=== PATIENT | male | born 1950 | race Caucasian/White ===

== ENCOUNTER 2021-08-05 14:47 | Emergency (ER) | payer MEDICARE, MEDICAID ==
[2021-08-05] MEDS ORDERED: Morphine 4 MG/ML Syringe IVPUSH ONE (15:00)
[2021-08-05 15:40] LABS: CHLORIDE,CL 106 mmol/L (98-107); SODIUM,NA 141 mmol/L (136-145)
[2021-08-05] MEDS ORDERED: HYDROmorphone 1 MG/ML Syringe ONE (15:41)
--- NOTE | 2021-08-05 15:42 | CR ---
[id number] RAD/RAD Pelvis 1V W 2V Right Hip Exam: RAD Pelvis 1V W 2V Right Hip Clinical Data: TRAUMA COMPARISON: NO PREVIOUS SIMILAR EXAM IS AVAILABLE FINDINGS: There is a subtrochanteric fracture of the right hip with varus angulation There is avulsion of the lesser trochanter and extension to the greater trochanter. IMPRESSION: SUBTROCHANTERIC FRACTURE RIGHT HIP Fredis Noriega MD 08/05/21 8812 Thank you for allowing us to participate in the care of your patient.
[2021-08-05 16:34] LABS: ANION GAP 14.9 mmol/L (5-15)
--- NOTE | 2021-08-05 16:40 | EDM.PDOC ---
ED HPI GENERAL MEDICAL PROBLEM - General Chief Complaint: Lower Extremity Injury/Pain Time Seen by Provider: 08/05/21 14:52 Source of Information: Reports: Patient, EMS, EMS Notes Reviewed History Limitations: Reports: No Limitations - History of Present Illness INITIAL COMMENTS - FREE TEXT/NARRATIVE: Pt. presents to ER with complaints of R hip pain. Pt. states that he slipped on the ice, falling and injuring his R hip. Pt. states that he did not strike his head. Denied any chest pain, shortness of breath, or lightheadedness prior to the fall. Pt. states that he "doesn't doctor" and has not had preventative medicine for many years. He denies any chronic medical conditions, and is not currently on any medications. Pt. offers no other complaints, other than R hip pain. He was transported to ER via EMS. Onset: Today Location: Reports: Lower Extremity, Right Quality: Reports: Sharp, Throbbing - Related Data Allergies Allergy/AdvReac Type Severity Reaction Status Date / Time No Known Allergies Allergy Verified 08/05/21 14:53 Home Meds: Home Meds . [No Known Home Meds] 08/05/21 [History] ED ROS GENERAL - Review of Systems Review Of Systems: See Below Constitutional: Reports: No Symptoms HEENT: Reports: No Symptoms Respiratory: Reports: No Symptoms Cardiovascular: Reports: No Symptoms Endocrine: Reports: No Symptoms GI/Abdominal: Reports: No Symptoms : Reports: No Symptoms Musculoskeletal: Reports: Leg Pain, Joint Swelling Skin: Reports: No Symptoms Neurological: Reports: No Symptoms Psychiatric: Reports: No Symptoms Hematologic/Lymphatic: Reports: No Symptoms Immunologic: Reports: No Symptoms ED EXAM, GENERAL - Physical Exam Exam: See Below Exam Limited By: No Limitations General Appearance: Alert, WD/WN, No Apparent Distress Head: Atraumatic, Normocephalic Neck: Normal Inspection, Supple, Non-Tender, Full Range of Motion Respiratory/Chest: No Respiratory Distress, Lungs Clear, Normal Breath Sounds, No Accessory Muscle Use, Chest Non-Tender Cardiovascular: Normal Peripheral Pulses, Regular Rate, Rhythm, No Edema, No JVD Peripheral Pulses: 4+: Radial (L) GI/Abdominal: Soft, Non-Tender, No Distention, No Mass (Male) Exam: Deferred Rectal (Males) Exam: Deferred Extremities: Other (forshortened R lower extremity, external rotation) Neurological: Alert, Oriented, CN II-XII Intact, Normal Cognition Psychiatric: Normal Affect, Normal Mood Skin Exam: Warm, Dry, Intact, Normal Color, No Rash Lymphatic: No Adenopathy Course - Orders/Labs/Meds Labs: Laboratory Tests 08/05/21 08/05/21 08/05/21 Range/Units 15:00 15:14 15:14 WBC 6.9 (4.0-10.0) x10^3/uL RBC 2.27 L (4.5-6.0) x10^6/uL Hgb 11.5 L (14.0-18.0) g/dL Hct 22.4 L (40.0-52.0) % MCV 98.7 H (78.0-93.0) fL MCH 50.7 H (26.0-32.0) pg MCHC 51.3 H (32.0-36.0) g/dL RDW Coeff of Víctor 21.1 H (10.0-15.0) % Plt Count 131 (130-400) x10^3/uL Add Manual Diff Yes Neutrophils % (Manual) 81 H (50-80) % Band Neutrophils % 5 (0-6) % Lymphocytes % (Manual) 7 L (25-50) % Monocytes % (Manual) 6 (2-11) % Basophils % (Manual) 1 (0-1) % Absolute Neutrophils 5.9 (1.8-7.7) x10^3/uL Lymphocytes # (Manual) 0.5 L (1.0-4.8) x10^3/uL Monocytes # (Manual) 0.4 (0.0-0.8) x10^3/uL Basophils # (Manual) 0.1 (0.0-0.2) x10^3/uL Platelet Estimate Adequate RBC Morph Comment See note PT 11.0 (9.9-12.5) SEC INR 1.0 L (2.0-3.5) Sodium (136-145) mmol/L Potassium (3.5-5.1) mmol/L Chloride (98-107) mmol/L Carbon Dioxide (21-32) mmol/L Anion Gap (5-15) mmol/L BUN (7-18) mg/dL Creatinine (0.70-1.30) mg/dL Est Cr Clr Drug Dosing Estimated GFR (MDRD) Glucose (70-99) mg/dL Calcium (8.5-10.1) mg/dL Corrected Calcium (8.5-10.1) mg/dL Total Bilirubin (0.2-1.0) mg/dL AST (15-37) U/L ALT (16-63) U/L Alkaline Phosphatase (46-116) U/L Total Protein (6.4-8.2) g/dL Albumin (3.4-5.0) g/dL Globulin Albumin/Globulin Ratio SARS CoV-2 RNA Rapid MEDARDO Negative (NEGATIVE) 08/05/21 Range/Units 15:14 WBC (4.0-10.0) x10^3/uL RBC (4.5-6.0) x10^6/uL Hgb (14.0-18.0) g/dL Hct (40.0-52.0) % MCV (78.0-93.0) fL MCH (26.0-32.0) pg MCHC (32.0-36.0) g/dL RDW Coeff of Víctor (10.0-15.0) % Plt Count (130-400) x10^3/uL Add Manual Diff Neutrophils % (Manual) (50-80) % Band Neutrophils % (0-6) % Lymphocytes % (Manual) (25-50) % Monocytes % (Manual) (2-11) % Basophils % (Manual) (0-1) % Absolute Neutrophils (1.8-7.7) x10^3/uL Lymphocytes # (Manual) (1.0-4.8) x10^3/uL Monocytes # (Manual) (0.0-0.8) x10^3/uL Basophils # (Manual) (0.0-0.2) x10^3/uL Platelet Estimate RBC Morph Comment PT (9.9-12.5) SEC INR (2.0-3.5) Sodium 141 (136-145) mmol/L Potassium 3.9 (3.5-5.1) mmol/L Chloride 106 (98-107) mmol/L Carbon Dioxide 24 (21-32) mmol/L Anion Gap 14.9 (5-15) mmol/L BUN 27 H (7-18) mg/dL Creatinine 1.3 (0.70-1.30) mg/dL Est Cr Clr Drug Dosing TNP Estimated GFR (MDRD) 55 Glucose 93 (70-99) mg/dL Calcium 8.4 L (8.5-10.1) mg/dL Corrected Calcium 8.8 (8.5-10.1) mg/dL Total Bilirubin 0.5 (0.2-1.0) mg/dL AST 16 (15-37) U/L ALT 17 (16-63) U/L Alkaline Phosphatase 96 (46-116) U/L Total Protein 7.8 (6.4-8.2) g/dL Albumin 3.5 (3.4-5.0) g/dL Globulin 4.3 Albumin/Globulin Ratio 0.81 SARS CoV-2 RNA Rapid MEDARDO (NEGATIVE) Meds: Medications Discontinued Medications Generic Name Dose Route Start Last Admin Trade Name Freq PRN Reason Stop Dose Admin Hydromorphone HCl Confirm 08/05/21 15:41 Hydromorphone 1 Mg/Ml Syringe Administered 08/05/21 15:42 Dose 1 mg .ROUTE .STK-MED ONE Morphine Sulfate 4 mg 08/05/21 15:00 08/05/21 15:05 Morphine 4 Mg/Ml Syringe IVPUSH 08/05/21 15:01 4 mg ONETIME ONE Administration - Radiology Interpretation Free Text/Narrative:: subtrochanteric hip fracture Departure - Departure Time of Disposition: 16:51 Disposition: DC/Tfer to Acute Hospital 02 Clinical Impression: Subtrochanteric fracture of hip - Discharge Information Forms: ED Department Discharge - Problem List Review Problem List Initiated/Reviewed/Updated: Yes - Assessment/Plan Plan: Pt. will be transferred to [facility] in [place]. He will be transported via [facility] ground [facility]. He can be transported via [facility] ground ambulance.
== END 2021-08-05 17:45 | disposition short-term general hospital (02) ==
LOC: VM.ED 14:47
DX: S72.21XA Displaced subtrochanteric fracture of right femur, initial encounter for closed fracture (principal); Z20.822 Contact with and (suspected) exposure to COVID-19; W00.0XXA Fall on same level due to ice and snow, initial encounter
CPT/HCPCS: 36415; 73502; 80053; 85025; 85610; 85730; 96374; 99285; J1170; J2270; U0002; 99283

== ENCOUNTER 2021-08-11 15:08 | Inpatient (IN) | payer MEDICARE, MEDICAID ==
[2021-08-18] MEDS ORDERED: Polyethylene Glycol 3350 Powder 17 GM Packet PO PRN (17:00)
[2021-08-18] MEDS ORDERED: Bisacodyl 10 MG Supp RECTAL PRN (17:00)
[2021-08-18] MEDS ORDERED: Calcium Carbonate 750 MG Tab.Chew PO PRN (17:26)
[2021-08-18] MEDS: Vitamin B Complex Tab PO SCH (19:06)
[2021-08-18] MEDS: Pantoprazole 40 MG Tab.CR PO SCH (19:06)
--- NOTE | 2021-08-18 20:36 | HP ---
CHIEF COMPLAINT: 1. Right hip fracture. 2. Fall. HISTORY OF PRESENT ILLNESS: A 70-year-old gentleman with no significant past medical history who has not seen a provider for many years, presented to [facility] Emergency Room with a fall with a right hip fracture. The patient was transferred to [facility] in [place] for further evaluation and possible surgery. On admission to the hospital, the patient had some acute kidney injury with creatinine of 1.3 and microcytic anemia. Postoperatively, the patient developed anemia with less than 7 and required transfusion of [address] scan showed small hematoma, which was followed by another CT scan with improvement and hence active bleeding was unlikely. The patient's surgery was uneventful. The patient remained stable through his hospital stay with some iron supplements and vitamins. The wound does continue to drain some serous fluid and sometimes blood-tinged fluid. The patient's discharge from was delayed due to his low hemoglobin. The patient did test positive for COVID-19 on 08/15/2021. The patient was not started on remdesivir or Decadron as he did not require any oxygen. It is felt that the anemia is probably due to postoperative blood loss. Hematology was consulted and recommended supplement iron either oral or IV. GI was also consulted, which recommended an EGD and colonoscopy once the patient is stable and as an outpatient. PAST MEDICAL HISTORY: Denies. PAST SURGICAL HISTORY: Denies. FAMILY HISTORY: Hypertension with the patient's mother. SOCIAL HISTORY: The patient quit smoking 2 weeks ago. He does not use any illegal drugs. The patient drinks alcohol on occasion. The patient is currently not . The patient does not have any children. ALLERGIES: No known drug allergies. MEDICATIONS: 1. Acetaminophen 650 mg 1 tablet p.o. 4 times daily. 2. Ascorbic acid 1000 mg 1 tablet p.o. daily. 3. Dulcolax 10 mg rectal daily as needed. 4. Calcium carbonate 750 mg p.o. every 4 hours as needed. 5. Calcium carbonate/vitamin D 1 tablet p.o. daily. 6. Vitamin D3 20 mcg p.o. daily. 7. Senna-S 2 tablets p.o. twice daily. 8. Lovenox 40 mg subcutaneous every 24 hours. 9. Ferrous sulfate 325 mg p.o. daily. 10.Multivitamin 1 tablet p.o. daily. 11.Zofran 4 mg p.o. every 6 hours as needed. 12.Oxycodone 5 mg p.o. every 4 hours as needed. 13.Protonix 40 mg p.o. daily. 14.MiraLAX 17 g p.o. daily as needed. 15.Vitamin B complex 1 tablet p.o. daily. 16.Zinc sulfate 220 mg p.o. daily. LABORATORY WORK: None. IMAGING STUDIES: None. REVIEW OF SYSTEMS: Constitutional: Negative. Skin: Negative. Respiratory: Negative. Cardiovascular: Negative. Abdomen: Negative. Extremities: The patient is concerned about significant swelling of the right thigh. Neurological: Negative. Incision negative. PHYSICAL EXAMINATION: Vital Signs: Height 6 feet 1 inch, weight 257 pounds. Temperature 98, pulse 67, blood pressure 136/57, respiratory rate 16, oxygen saturation 98% on room air. Skin: Warm and dry. [place] are intact along the lateral aspect of the upper right thigh; no drainage; dressing is dry; area is tender to palpation. Respiratory: Lungs are decreased, but clear throughout. Cardiovascular: Regular rate and rhythm, no murmur. Abdomen: Soft, nontender. Bowel sounds are hypoactive x4. Extremities: No edema. Neurological: Patient is alert. Patient is oriented to person, place, and time. No focal neurological deficits. ASSESSMENT: 1. Right hip fracture, as a result of a mechanical fall. 2. Status post intramedullary nailing of right subtrochanteric fracture. 3. Right knee swelling. 4. Macrocytic anemia. 5. Tobacco use disorder. PLAN: A 70-year-old male patient will be admitted to the swing bed unit for rehab status post right hip fracture surgery. We will continue the patient on his current medications without any changes. We will consult PT and OT. The patient wishes to be a full code. The patient does wish to transfer to higher level of care should the need arise. Recheck laboratory work tomorrow. This patient was seen and examined by me as an [facility] provider. TB: 08/18/2021 19:54:50 MODL: 08/18/2021 20:32:12 /[id number]
[2021-08-18] MEDS: Acetaminophen 325 MG Tab PO SCH (20:50)
[2021-08-19 07:39] LABS: CHLORIDE,CL 107 mmol/L (98-107); SODIUM,NA 141 mmol/L (136-145)
[2021-08-19 07:43] LABS: ANION GAP 12.3 mmol/L (5-15)
[2021-08-19] MEDS ORDERED: Enoxaparin 40 MG/0.4 ML Syringe SUBCUT SCH (08:00)
[2021-08-19] MEDS ORDERED: Non-Formulary Medication 1 Each (Ascorbic Acid [Vitamin C] 1,000 MG Tablet) PO SCH (08:00)
[2021-08-19] MEDS ORDERED: Non-Formulary Medication 1 Each (Zinc Sulfate [Zinc] 50 MG Tablet) PO SCH (08:00)
[2021-08-19] MEDS ORDERED: Non-Formulary Medication 1 Each (Calcium Carbonate [Calcium] 500 MG Tablet) PO SCH (08:00)
[2021-08-19] MEDS ORDERED: Non-Formulary Medication 1 Each (Multivitamin [Multivitamin] 1 EACH Tablet) PO SCH (08:00)
[2021-08-19] MEDS ORDERED: Non-Formulary Medication 1 Each (Cholecalciferol (Vitamin D3) [Vitamin D3] 400 UNIT Capsul PO SCH (08:00)
[2021-08-19] MEDS: Cholecalciferol (Vitamin D3) 10 MCG Tab PO SCH (09:03)
[2021-08-19] MEDS: Ascorbic Acid 500 MG Tab PO SCH (09:03)
[2021-08-19] MEDS: Ferrous Sulfate 325 MG Tab PO SCH (09:03)
[2021-08-19] MEDS: Calcium Carbonate/Vitamin D3 1250 MG-5 MCG Tab PO SCH (09:03)
[2021-08-19] MEDS: Multivitamins with Iron/Calcium/Folic Acid/Minerals Tab PO SCH (09:03)
[2021-08-19] MEDS: Acetaminophen 325 MG Tab PO SCH ×4 (09:04→20:12)
[2021-08-19] MEDS: Enoxaparin 40 MG/0.4 ML Syringe SUBCUT SCH (13:52)
[2021-08-19] MEDS: Zinc Sulfate 220 MG Cap PO SCH (16:37)
[2021-08-19] MEDS: Pantoprazole 40 MG Tab.CR PO SCH (16:38)
[2021-08-19] MEDS: Vitamin B Complex Tab PO SCH (18:04)
[2021-08-20] MEDS: Cholecalciferol (Vitamin D3) 10 MCG Tab PO SCH (10:21)
[2021-08-20] MEDS: Calcium Carbonate/Vitamin D3 1250 MG-5 MCG Tab PO SCH (10:21)
[2021-08-20] MEDS: Ferrous Sulfate 325 MG Tab PO SCH (10:21)
[2021-08-20] MEDS: Multivitamins with Iron/Calcium/Folic Acid/Minerals Tab PO SCH (10:22)
[2021-08-20] MEDS: Acetaminophen 325 MG Tab PO SCH ×4 (10:22→19:47)
[2021-08-20] MEDS: Ascorbic Acid 500 MG Tab PO SCH (10:22)
[2021-08-20] MEDS: Enoxaparin 40 MG/0.4 ML Syringe SUBCUT SCH (13:17)
[2021-08-20] MEDS: Zinc Sulfate 220 MG Cap PO SCH (13:17)
[2021-08-20] MEDS: Vitamin B Complex Tab PO SCH (17:47)
[2021-08-20] MEDS: Pantoprazole 40 MG Tab.CR PO SCH (17:48)
[2021-08-21] MEDS: Acetaminophen 325 MG Tab PO SCH ×4 (08:15→20:20)
[2021-08-21] MEDS: Ferrous Sulfate 325 MG Tab PO SCH (08:16)
[2021-08-21] MEDS: Cholecalciferol (Vitamin D3) 10 MCG Tab PO SCH (08:16)
[2021-08-21] MEDS: Ascorbic Acid 500 MG Tab PO SCH (08:17)
[2021-08-21] MEDS: Multivitamins with Iron/Calcium/Folic Acid/Minerals Tab PO SCH (08:18)
[2021-08-21] MEDS: Calcium Carbonate/Vitamin D3 1250 MG-5 MCG Tab PO SCH (08:18)
[2021-08-21] MEDS: Enoxaparin 40 MG/0.4 ML Syringe SUBCUT SCH (12:24)
[2021-08-21] MEDS: Zinc Sulfate 220 MG Cap PO SCH (12:25)
[2021-08-21] MEDS: oxyCODONE 5 MG Tab PO PRN (12:27)
[2021-08-21] MEDS: Pantoprazole 40 MG Tab.CR PO SCH (16:44)
[2021-08-21] MEDS: Vitamin B Complex Tab PO SCH ×2 (16:45→18:22)
[2021-08-22] MEDS: Acetaminophen 325 MG Tab PO SCH ×4 (07:42→20:20)
[2021-08-22] MEDS: Ascorbic Acid 500 MG Tab PO SCH (07:43)
[2021-08-22] MEDS: Zinc Sulfate 220 MG Cap PO SCH (07:43)
[2021-08-22] MEDS: Ondansetron 4 MG Tab.DIS PO PRN (07:43)
[2021-08-22] MEDS: Ferrous Sulfate 325 MG Tab PO SCH (07:43)
[2021-08-22] MEDS: Calcium Carbonate/Vitamin D3 1250 MG-5 MCG Tab PO SCH (07:43)
[2021-08-22] MEDS: Cholecalciferol (Vitamin D3) 10 MCG Tab PO SCH (07:43)
[2021-08-22] MEDS: Multivitamins with Iron/Calcium/Folic Acid/Minerals Tab PO SCH (07:44)
[2021-08-22] MEDS ORDERED: Sodium Phosphate,Monobasic/Sodium Phosphate,Dibasic Enema 133 ML Bottle RECTAL PRN (08:02)
[2021-08-22] MEDS: Enoxaparin 40 MG/0.4 ML Syringe SUBCUT SCH (11:41)
[2021-08-22] MEDS: Pantoprazole 40 MG Tab.CR PO SCH (16:26)
[2021-08-22] MEDS: Vitamin B Complex Tab PO SCH ×2 (16:27→17:14)
[2021-08-23] MEDS: Zinc Sulfate 220 MG Cap PO SCH (09:30)
[2021-08-23] MEDS: Ascorbic Acid 500 MG Tab PO SCH (09:30)
[2021-08-23] MEDS: Ferrous Sulfate 325 MG Tab PO SCH (09:31)
[2021-08-23] MEDS: Calcium Carbonate/Vitamin D3 1250 MG-5 MCG Tab PO SCH (09:31)
[2021-08-23] MEDS: Acetaminophen 325 MG Tab PO SCH ×4 (09:31→19:55)
[2021-08-23] MEDS: Multivitamins with Iron/Calcium/Folic Acid/Minerals Tab PO SCH (09:31)
[2021-08-23] MEDS: Cholecalciferol (Vitamin D3) 10 MCG Tab PO SCH (09:32)
[2021-08-23] MEDS: Enoxaparin 40 MG/0.4 ML Syringe SUBCUT SCH (12:46)
--- NOTE | 2021-08-23 14:31 | CR ---
[id number] RAD/RAD Chest PA or AP 1V EXAM: FRONTAL CHEST INDICATION: COVID. COMPARISON: None. DISCUSSION: Mild bibasilar infiltrates. Normal heart size. No effusions. IMPRESSION: 1. Mild bibasilar infiltrates, right greater than left. Emeka Silverio MD 08/23/21 [id number] Thank you for allowing us to participate in the care of your patient.
[2021-08-23] MEDS ORDERED: VANCOmycin 2 GM/400 ML 400 ML IV ONE (17:00)
--- NOTE | 2021-08-23 17:22 | PCM.SN.2 ---
- Free Text/Narrative Note: 13:15 Notified by NATAN Lorenz of change in patient status. Low grade temp of 99.9, patient developed a cough, sats 92% on RA. Remdesivir not indicated as patient is not requiring oxygen. Will obtain labs and CXR. 15:30 Labs and CXR results reviewed. Xray shows bibasilar infiltrates. Symptoms likely bacterial, therefore will have pharmacy start patient on abx therapy. Will start Decadron. Recheck labs tomorrow morning. Consult respiratory therapy. Nursing for C/DB, IS instruction. Will continue to monitor. Anne Marie Aguayo NP 08/23/2021
[2021-08-23] MEDS ORDERED: Vancomycin 2 GM in Sodium Chloride 0.9% 500 ML IV ONE (17:45)
[2021-08-23] MEDS: Cefepime 1 GM Vial IVPUSH SCH (17:58)
[2021-08-23] MEDS: dexAMETHasone 2 MG, dexAMETHasone 4 MG PO SCH ×2 (17:58)
[2021-08-23] MEDS: Vitamin B Complex Tab PO SCH (17:58)
[2021-08-23] MEDS: Pantoprazole 40 MG Tab.CR PO SCH (17:58)
[2021-08-24] MEDS: Cefepime 1 GM Vial IVPUSH SCH ×3 (01:32→17:28)
[2021-08-24] MEDS: VANCOMYCIN IV SCH ×2 (05:34→17:48)
[2021-08-24] MEDS: Cholecalciferol (Vitamin D3) 10 MCG Tab PO SCH (10:12)
[2021-08-24] MEDS: Multivitamins with Iron/Calcium/Folic Acid/Minerals Tab PO SCH (10:12)
[2021-08-24] MEDS: Ascorbic Acid 500 MG Tab PO SCH (10:12)
[2021-08-24] MEDS: dexAMETHasone 2 MG, dexAMETHasone 4 MG PO SCH ×2 (10:13)
[2021-08-24] MEDS: Ferrous Sulfate 325 MG Tab PO SCH (10:14)
[2021-08-24] MEDS: Zinc Sulfate 220 MG Cap PO SCH (10:14)
[2021-08-24] MEDS: Acetaminophen 325 MG Tab PO SCH ×4 (10:14→19:40)
[2021-08-24] MEDS: Calcium Carbonate/Vitamin D3 1250 MG-5 MCG Tab PO SCH (10:14)
[2021-08-24] MEDS: Enoxaparin 40 MG/0.4 ML Syringe SUBCUT SCH (13:31)
[2021-08-24] MEDS: Pantoprazole 40 MG Tab.CR PO SCH (17:26)
[2021-08-24] MEDS: Vitamin B Complex Tab PO SCH (17:30)
[2021-08-25] MEDS: Cefepime 1 GM Vial IVPUSH SCH ×3 (01:20→18:21)
[2021-08-25] MEDS: VANCOMYCIN IV SCH ×2 (06:46→07:21)
[2021-08-25] MEDS: Zinc Sulfate 220 MG Cap PO SCH (10:06)
[2021-08-25] MEDS: Cholecalciferol (Vitamin D3) 10 MCG Tab PO SCH (10:07)
[2021-08-25] MEDS: Calcium Carbonate/Vitamin D3 1250 MG-5 MCG Tab PO SCH (10:07)
[2021-08-25] MEDS: Multivitamins with Iron/Calcium/Folic Acid/Minerals Tab PO SCH (10:07)
[2021-08-25] MEDS: Ascorbic Acid 500 MG Tab PO SCH (10:07)
[2021-08-25] MEDS: Ferrous Sulfate 325 MG Tab PO SCH (10:08)
[2021-08-25] MEDS: dexAMETHasone 2 MG, dexAMETHasone 4 MG PO SCH ×2 (10:09)
[2021-08-25] MEDS: Acetaminophen 325 MG Tab PO SCH ×4 (10:09→19:50)
[2021-08-25] MEDS: VANCOmycin 1.25 GM/250 ML 250 ML IV SCH (13:14)
[2021-08-25] MEDS: Enoxaparin 40 MG/0.4 ML Syringe SUBCUT SCH (13:24)
[2021-08-25] MEDS: Vitamin B Complex Tab PO SCH (18:21)
[2021-08-25] MEDS: Pantoprazole 40 MG Tab.CR PO SCH (18:21)
[2021-08-25] MEDS: Sodium Chloride 0.9% 10 ML Syringe IV PRN (19:52)
[2021-08-26] MEDS: Cefepime 1 GM Vial IVPUSH SCH ×3 (01:03→17:37)
[2021-08-26] MEDS: VANCOmycin 1.25 GM/250 ML 250 ML IV SCH ×2 (01:03→12:47)
[2021-08-26] MEDS: dexAMETHasone 2 MG, dexAMETHasone 4 MG PO SCH ×2 (11:47)
[2021-08-26] MEDS: Calcium Carbonate/Vitamin D3 1250 MG-5 MCG Tab PO SCH (11:47)
[2021-08-26] MEDS: Multivitamins with Iron/Calcium/Folic Acid/Minerals Tab PO SCH (11:47)
[2021-08-26] MEDS: Ferrous Sulfate 325 MG Tab PO SCH (11:47)
[2021-08-26] MEDS: Cholecalciferol (Vitamin D3) 10 MCG Tab PO SCH (11:48)
[2021-08-26] MEDS: Zinc Sulfate 220 MG Cap PO SCH (11:48)
[2021-08-26] MEDS: Acetaminophen 325 MG Tab PO SCH ×4 (11:48→19:42)
[2021-08-26] MEDS: Ascorbic Acid 500 MG Tab PO SCH (11:48)
[2021-08-26] MEDS: Enoxaparin 40 MG/0.4 ML Syringe SUBCUT SCH (12:47)
[2021-08-26 12:48] LABS: CHLORIDE,CL 108 mmol/L (98-107); SODIUM,NA 141 mmol/L (136-145)
[2021-08-26 13:05] LABS: ANION GAP 15.1 mmol/L (5-15)
[2021-08-26] MEDS: Vitamin B Complex Tab PO SCH (17:37)
[2021-08-26] MEDS: Pantoprazole 40 MG Tab.CR PO SCH (17:37)
[2021-08-27] MEDS: Cefepime 1 GM Vial IVPUSH SCH ×3 (00:59→17:46)
[2021-08-27] MEDS: Sodium Chloride 0.9% 10 ML Syringe IV PRN (01:00)
[2021-08-27] MEDS: VANCOmycin 1.25 GM/250 ML 250 ML IV SCH ×2 (01:00→13:56)
[2021-08-27] MEDS: Multivitamins with Iron/Calcium/Folic Acid/Minerals Tab PO SCH (09:58)
[2021-08-27] MEDS: Calcium Carbonate/Vitamin D3 1250 MG-5 MCG Tab PO SCH (09:58)
[2021-08-27] MEDS: Ascorbic Acid 500 MG Tab PO SCH (09:58)
[2021-08-27] MEDS: Cholecalciferol (Vitamin D3) 10 MCG Tab PO SCH (09:58)
[2021-08-27] MEDS: Acetaminophen 325 MG Tab PO SCH ×4 (09:59→19:44)
[2021-08-27] MEDS: Ferrous Sulfate 325 MG Tab PO SCH (09:59)
[2021-08-27] MEDS: Zinc Sulfate 220 MG Cap PO SCH (09:59)
[2021-08-27] MEDS: dexAMETHasone 2 MG, dexAMETHasone 4 MG PO SCH ×2 (09:59)
[2021-08-27] MEDS: Enoxaparin 40 MG/0.4 ML Syringe SUBCUT SCH (12:31)
[2021-08-27] MEDS: Vitamin B Complex Tab PO SCH (17:46)
[2021-08-27] MEDS: Pantoprazole 40 MG Tab.CR PO SCH (17:46)
[2021-08-28] MEDS: Cefepime 1 GM Vial IVPUSH SCH ×3 (01:36→17:40)
[2021-08-28] MEDS: Sodium Chloride 0.9% 10 ML Syringe IV PRN ×2 (01:36→19:30)
[2021-08-28] MEDS: dexAMETHasone 2 MG, dexAMETHasone 4 MG PO SCH ×2 (09:03)
[2021-08-28] MEDS: Ferrous Sulfate 325 MG Tab PO SCH (09:03)
[2021-08-28] MEDS: Ascorbic Acid 500 MG Tab PO SCH (09:04)
[2021-08-28] MEDS: Zinc Sulfate 220 MG Cap PO SCH (09:04)
[2021-08-28] MEDS: Cholecalciferol (Vitamin D3) 10 MCG Tab PO SCH (09:04)
[2021-08-28] MEDS: Multivitamins with Iron/Calcium/Folic Acid/Minerals Tab PO SCH (09:04)
[2021-08-28] MEDS: Calcium Carbonate/Vitamin D3 1250 MG-5 MCG Tab PO SCH (09:05)
[2021-08-28] MEDS: Acetaminophen 325 MG Tab PO SCH ×4 (09:05→19:27)
[2021-08-28] MEDS: Enoxaparin 40 MG/0.4 ML Syringe SUBCUT SCH (11:40)
[2021-08-28] MEDS: VANCOmycin 1.25 GM/250 ML 250 ML IV SCH (15:04)
[2021-08-28] MEDS: Pantoprazole 40 MG Tab.CR PO SCH (17:36)
[2021-08-28] MEDS: Vitamin B Complex Tab PO SCH (17:36)
[2021-08-29] MEDS: VANCOmycin 1.25 GM/250 ML 250 ML IV SCH ×2 (00:19→11:35)
[2021-08-29] MEDS: Cefepime 1 GM Vial IVPUSH SCH ×3 (02:25→17:37)
[2021-08-29] MEDS: Sodium Chloride 0.9% 10 ML Syringe IV PRN ×3 (02:29→17:37)
[2021-08-29] MEDS: Zinc Sulfate 220 MG Cap PO SCH (07:56)
[2021-08-29] MEDS: Ferrous Sulfate 325 MG Tab PO SCH (07:57)
[2021-08-29] MEDS: Cholecalciferol (Vitamin D3) 10 MCG Tab PO SCH (07:57)
[2021-08-29] MEDS: Ascorbic Acid 500 MG Tab PO SCH (07:57)
[2021-08-29] MEDS: Acetaminophen 325 MG Tab PO SCH ×4 (07:57→20:20)
[2021-08-29] MEDS: Multivitamins with Iron/Calcium/Folic Acid/Minerals Tab PO SCH (07:57)
[2021-08-29] MEDS: Calcium Carbonate/Vitamin D3 1250 MG-5 MCG Tab PO SCH (07:58)
[2021-08-29] MEDS: Enoxaparin 40 MG/0.4 ML Syringe SUBCUT SCH (11:43)
[2021-08-29] MEDS: oxyCODONE 5 MG Tab PO PRN (12:22)
[2021-08-29] MEDS: Pantoprazole 40 MG Tab.CR PO SCH (16:45)
[2021-08-29] MEDS: Vitamin B Complex Tab PO SCH (17:36)
[2021-08-30] MEDS ORDERED: Cyanocobalamin (Vitamin B12) 1,000 MCG/ML SDV IM ONE (07:23)
[2021-08-30] MEDS: Cholecalciferol (Vitamin D3) 10 MCG Tab PO SCH (08:44)
[2021-08-30] MEDS: Calcium Carbonate/Vitamin D3 1250 MG-5 MCG Tab PO SCH (08:44)
[2021-08-30] MEDS: Acetaminophen 325 MG Tab PO SCH ×4 (08:44→20:37)
[2021-08-30] MEDS: Zinc Sulfate 220 MG Cap PO SCH (08:45)
[2021-08-30] MEDS: Ascorbic Acid 500 MG Tab PO SCH (08:45)
[2021-08-30] MEDS: Ferrous Sulfate 325 MG Tab PO SCH (08:45)
[2021-08-30] MEDS: Multivitamins with Iron/Calcium/Folic Acid/Minerals Tab PO SCH (08:45)
[2021-08-30] MEDS: Enoxaparin 40 MG/0.4 ML Syringe SUBCUT SCH (12:12)
[2021-08-30] MEDS: Pantoprazole 40 MG Tab.CR PO SCH (16:13)
[2021-08-30] MEDS: Vitamin B Complex Tab PO SCH (17:19)
[2021-08-31 07:35] LABS: CHLORIDE,CL 111 mmol/L (98-107); SODIUM,NA 142 mmol/L (136-145)
[2021-08-31 07:36] LABS: ANION GAP 11.7 mmol/L (5-15)
[2021-08-31] MEDS: Ascorbic Acid 500 MG Tab PO SCH (10:58)
[2021-08-31] MEDS: Multivitamins with Iron/Calcium/Folic Acid/Minerals Tab PO SCH (10:58)
[2021-08-31] MEDS: Calcium Carbonate/Vitamin D3 1250 MG-5 MCG Tab PO SCH (10:58)
[2021-08-31] MEDS: Cholecalciferol (Vitamin D3) 10 MCG Tab PO SCH (10:58)
[2021-08-31] MEDS: Ferrous Sulfate 325 MG Tab PO SCH (10:58)
[2021-08-31] MEDS: Zinc Sulfate 220 MG Cap PO SCH (10:59)
[2021-08-31] MEDS: Acetaminophen 325 MG Tab PO SCH ×4 (10:59→20:45)
[2021-08-31] MEDS: Enoxaparin 40 MG/0.4 ML Syringe SUBCUT SCH (14:11)
[2021-08-31] MEDS: Vitamin B Complex Tab PO SCH (18:21)
[2021-08-31] MEDS: Pantoprazole 40 MG Tab.CR PO SCH (18:21)
[2021-09-01] MEDS: Zinc Sulfate 220 MG Cap PO SCH (07:58)
[2021-09-01] MEDS: Cholecalciferol (Vitamin D3) 10 MCG Tab PO SCH (07:58)
[2021-09-01] MEDS: Calcium Carbonate/Vitamin D3 1250 MG-5 MCG Tab PO SCH (07:58)
[2021-09-01] MEDS: Ferrous Sulfate 325 MG Tab PO SCH (07:58)
[2021-09-01] MEDS: Ascorbic Acid 500 MG Tab PO SCH (07:58)
[2021-09-01] MEDS: Acetaminophen 325 MG Tab PO SCH ×4 (07:58→20:34)
[2021-09-01] MEDS: Multivitamins with Iron/Calcium/Folic Acid/Minerals Tab PO SCH (07:59)
[2021-09-01] MEDS: oxyCODONE 5 MG Tab PO PRN ×2 (09:16→13:57)
[2021-09-01] MEDS: Enoxaparin 40 MG/0.4 ML Syringe SUBCUT SCH (11:04)
[2021-09-01] MEDS: Ondansetron 4 MG Tab.DIS PO PRN (13:57)
[2021-09-01] MEDS: Vitamin B Complex Tab PO SCH (17:41)
[2021-09-01] MEDS: Pantoprazole 40 MG Tab.CR PO SCH (17:41)
[2021-09-02] MEDS: Ascorbic Acid 500 MG Tab PO SCH (07:41)
[2021-09-02] MEDS: Calcium Carbonate/Vitamin D3 1250 MG-5 MCG Tab PO SCH (07:41)
[2021-09-02] MEDS: Acetaminophen 325 MG Tab PO SCH ×4 (07:41→20:29)
[2021-09-02] MEDS: Ondansetron 4 MG Tab.DIS PO PRN (07:42)
[2021-09-02] MEDS: Zinc Sulfate 220 MG Cap PO SCH (07:42)
[2021-09-02] MEDS: Ferrous Sulfate 325 MG Tab PO SCH (07:42)
[2021-09-02] MEDS: Multivitamins with Iron/Calcium/Folic Acid/Minerals Tab PO SCH (07:42)
[2021-09-02] MEDS: oxyCODONE 5 MG Tab PO PRN (07:42)
[2021-09-02] MEDS: Cholecalciferol (Vitamin D3) 10 MCG Tab PO SCH (07:42)
[2021-09-02] MEDS: Enoxaparin 40 MG/0.4 ML Syringe SUBCUT SCH (11:22)
[2021-09-02] MEDS: Pantoprazole 40 MG Tab.CR PO SCH (17:25)
[2021-09-02] MEDS: Vitamin B Complex Tab PO SCH (17:25)
[2021-09-03] MEDS: Ascorbic Acid 500 MG Tab PO SCH (08:56)
[2021-09-03] MEDS: Zinc Sulfate 220 MG Cap PO SCH (08:56)
[2021-09-03] MEDS: Cholecalciferol (Vitamin D3) 10 MCG Tab PO SCH (08:56)
[2021-09-03] MEDS: Calcium Carbonate/Vitamin D3 1250 MG-5 MCG Tab PO SCH (08:56)
[2021-09-03] MEDS: Ferrous Sulfate 325 MG Tab PO SCH (08:56)
[2021-09-03] MEDS: Acetaminophen 325 MG Tab PO SCH ×4 (08:57→20:04)
[2021-09-03] MEDS: Multivitamins with Iron/Calcium/Folic Acid/Minerals Tab PO SCH (08:57)
[2021-09-03] MEDS ORDERED: Magnesium Hydroxide 400 MG/5 ML Susp 30 ML Cup PO PRN (11:24)
[2021-09-03] MEDS ORDERED: Bisacodyl 10 MG Supp RECTAL PRN (11:26)
[2021-09-03] MEDS: Enoxaparin 40 MG/0.4 ML Syringe SUBCUT SCH (14:05)
[2021-09-03] MEDS: Ondansetron 4 MG Tab.DIS PO PRN (14:06)
[2021-09-03] MEDS: oxyCODONE 5 MG Tab PO PRN (14:06)
[2021-09-03] MEDS: Pantoprazole 40 MG Tab.CR PO SCH (17:23)
[2021-09-03] MEDS: Vitamin B Complex Tab PO SCH (17:23)
[2021-09-04] MEDS: Ferrous Sulfate 325 MG Tab PO SCH (09:57)
[2021-09-04] MEDS: Ascorbic Acid 500 MG Tab PO SCH (09:57)
[2021-09-04] MEDS: Cholecalciferol (Vitamin D3) 10 MCG Tab PO SCH (09:57)
[2021-09-04] MEDS: Multivitamins with Iron/Calcium/Folic Acid/Minerals Tab PO SCH (09:58)
[2021-09-04] MEDS: Calcium Carbonate/Vitamin D3 1250 MG-5 MCG Tab PO SCH (09:58)
[2021-09-04] MEDS: Acetaminophen 325 MG Tab PO SCH ×4 (09:59→19:37)
[2021-09-04] MEDS: oxyCODONE 5 MG Tab PO PRN (10:00)
[2021-09-04] MEDS: Zinc Sulfate 220 MG Cap PO SCH (14:43)
[2021-09-04] MEDS: Enoxaparin 40 MG/0.4 ML Syringe SUBCUT SCH (14:43)
[2021-09-04] MEDS: Vitamin B Complex Tab PO SCH (17:36)
[2021-09-04] MEDS: Pantoprazole 40 MG Tab.CR PO SCH (17:37)
[2021-09-05 07:07] LABS: ANION GAP 10.7 mmol/L (5-15); CHLORIDE,CL 108 mmol/L (98-107); SODIUM,NA 143 mmol/L (136-145)
[2021-09-05] MEDS: Ferrous Sulfate 325 MG Tab PO SCH (07:46)
[2021-09-05] MEDS: Calcium Carbonate/Vitamin D3 1250 MG-5 MCG Tab PO SCH (07:48)
[2021-09-05] MEDS: Ascorbic Acid 500 MG Tab PO SCH (07:48)
[2021-09-05] MEDS: Multivitamins with Iron/Calcium/Folic Acid/Minerals Tab PO SCH (07:48)
[2021-09-05] MEDS: Cholecalciferol (Vitamin D3) 10 MCG Tab PO SCH (07:48)
[2021-09-05] MEDS: Acetaminophen 325 MG Tab PO SCH ×4 (07:48→19:35)
[2021-09-05] MEDS: Zinc Sulfate 220 MG Cap PO SCH (07:49)
[2021-09-05] MEDS: Ondansetron 4 MG Tab.DIS PO PRN (11:47)
[2021-09-05] MEDS: Enoxaparin 40 MG/0.4 ML Syringe SUBCUT SCH (11:48)
[2021-09-05] MEDS: oxyCODONE 5 MG Tab PO PRN (11:48)
[2021-09-05] MEDS: Pantoprazole 40 MG Tab.CR PO SCH (16:49)
[2021-09-05] MEDS: Vitamin B Complex Tab PO SCH (17:43)
[2021-09-06] MEDS: Multivitamins with Iron/Calcium/Folic Acid/Minerals Tab PO SCH (07:51)
[2021-09-06] MEDS: Zinc Sulfate 220 MG Cap PO SCH (07:51)
[2021-09-06] MEDS: Cholecalciferol (Vitamin D3) 10 MCG Tab PO SCH (07:51)
[2021-09-06] MEDS: Calcium Carbonate/Vitamin D3 1250 MG-5 MCG Tab PO SCH (07:51)
[2021-09-06] MEDS: Ascorbic Acid 500 MG Tab PO SCH (07:51)
[2021-09-06] MEDS: Ferrous Sulfate 325 MG Tab PO SCH (07:51)
[2021-09-06] MEDS: Acetaminophen 325 MG Tab PO SCH ×4 (07:51→19:59)
[2021-09-06] MEDS: Enoxaparin 40 MG/0.4 ML Syringe SUBCUT SCH (12:49)
[2021-09-06] MEDS: Pantoprazole 40 MG Tab.CR PO SCH (16:30)
[2021-09-06] MEDS: Vitamin B Complex Tab PO SCH (17:58)
[2021-09-07] MEDS: Acetaminophen 325 MG Tab PO SCH ×4 (07:26→20:13)
[2021-09-07] MEDS: Zinc Sulfate 220 MG Cap PO SCH (07:26)
[2021-09-07] MEDS: Ascorbic Acid 500 MG Tab PO SCH (07:26)
[2021-09-07] MEDS: Multivitamins with Iron/Calcium/Folic Acid/Minerals Tab PO SCH (07:27)
[2021-09-07] MEDS: Ferrous Sulfate 325 MG Tab PO SCH (07:27)
[2021-09-07] MEDS: Calcium Carbonate/Vitamin D3 1250 MG-5 MCG Tab PO SCH (07:27)
[2021-09-07] MEDS: Cholecalciferol (Vitamin D3) 10 MCG Tab PO SCH (07:27)
[2021-09-07] MEDS: Sodium Chloride 0.9% 10 ML Syringe IV PRN (07:38)
[2021-09-07] MEDS: Enoxaparin 40 MG/0.4 ML Syringe SUBCUT SCH (11:44)
[2021-09-07] MEDS: Pantoprazole 40 MG Tab.CR PO SCH (17:30)
[2021-09-07] MEDS: Vitamin B Complex Tab PO SCH (17:30)
[2021-09-08] MEDS: Cholecalciferol (Vitamin D3) 10 MCG Tab PO SCH (07:56)
[2021-09-08] MEDS: Multivitamins with Iron/Calcium/Folic Acid/Minerals Tab PO SCH (07:58)
[2021-09-08] MEDS: Ferrous Sulfate 325 MG Tab PO SCH (07:58)
[2021-09-08] MEDS: Acetaminophen 325 MG Tab PO SCH ×4 (07:58→19:48)
[2021-09-08] MEDS: Calcium Carbonate/Vitamin D3 1250 MG-5 MCG Tab PO SCH (07:58)
[2021-09-08] MEDS: Enoxaparin 40 MG/0.4 ML Syringe SUBCUT SCH (11:53)
[2021-09-08] MEDS: oxyCODONE 5 MG Tab PO PRN (11:54)
[2021-09-08] MEDS: Vitamin B Complex Tab PO SCH (17:36)
[2021-09-08] MEDS: Pantoprazole 40 MG Tab.CR PO SCH (17:36)
[2021-09-09] MEDS: Calcium Carbonate/Vitamin D3 1250 MG-5 MCG Tab PO SCH (07:34)
[2021-09-09] MEDS: Cholecalciferol (Vitamin D3) 10 MCG Tab PO SCH (07:35)
[2021-09-09] MEDS: Acetaminophen 325 MG Tab PO SCH ×4 (07:35→19:42)
[2021-09-09] MEDS: Ferrous Sulfate 325 MG Tab PO SCH (07:36)
[2021-09-09] MEDS: Multivitamins with Iron/Calcium/Folic Acid/Minerals Tab PO SCH (07:42)
[2021-09-09] MEDS: Enoxaparin 40 MG/0.4 ML Syringe SUBCUT SCH (07:50)
[2021-09-09] MEDS: oxyCODONE 5 MG Tab PO PRN (14:38)
[2021-09-09] MEDS: Pantoprazole 40 MG Tab.CR PO SCH (17:08)
[2021-09-09] MEDS: Vitamin B Complex Tab PO SCH (17:08)
[2021-09-10] MEDS: Ferrous Sulfate 325 MG Tab PO SCH (08:00)
[2021-09-10] MEDS: Multivitamins with Iron/Calcium/Folic Acid/Minerals Tab PO SCH (08:00)
[2021-09-10] MEDS: Calcium Carbonate/Vitamin D3 1250 MG-5 MCG Tab PO SCH (08:00)
[2021-09-10] MEDS: Cholecalciferol (Vitamin D3) 10 MCG Tab PO SCH (08:00)
[2021-09-10] MEDS: Acetaminophen 325 MG Tab PO SCH ×4 (08:00→19:46)
[2021-09-10] MEDS: Enoxaparin 40 MG/0.4 ML Syringe SUBCUT SCH (11:35)
[2021-09-10] MEDS: oxyCODONE 5 MG Tab PO PRN (14:52)
[2021-09-10] MEDS: Pantoprazole 40 MG Tab.CR PO SCH (17:10)
[2021-09-10] MEDS: Vitamin B Complex Tab PO SCH (17:10)
[2021-09-11] MEDS: Acetaminophen 325 MG Tab PO SCH ×4 (08:43→20:12)
[2021-09-11] MEDS: Cholecalciferol (Vitamin D3) 10 MCG Tab PO SCH (08:45)
[2021-09-11] MEDS: Ferrous Sulfate 325 MG Tab PO SCH (08:45)
[2021-09-11] MEDS: Multivitamins with Iron/Calcium/Folic Acid/Minerals Tab PO SCH (08:45)
[2021-09-11] MEDS: Calcium Carbonate/Vitamin D3 1250 MG-5 MCG Tab PO SCH (08:45)
[2021-09-11] MEDS: Enoxaparin 40 MG/0.4 ML Syringe SUBCUT SCH (12:14)
[2021-09-11] MEDS: Pantoprazole 40 MG Tab.CR PO SCH (18:21)
[2021-09-11] MEDS: Vitamin B Complex Tab PO SCH (18:48)
[2021-09-12] MEDS: Multivitamins with Iron/Calcium/Folic Acid/Minerals Tab PO SCH (07:39)
[2021-09-12] MEDS: Acetaminophen 325 MG Tab PO SCH ×4 (07:39→21:25)
[2021-09-12] MEDS: Cholecalciferol (Vitamin D3) 10 MCG Tab PO SCH (07:40)
[2021-09-12] MEDS: Calcium Carbonate/Vitamin D3 1250 MG-5 MCG Tab PO SCH (07:40)
[2021-09-12] MEDS: Ferrous Sulfate 325 MG Tab PO SCH (07:40)
[2021-09-12] MEDS: Enoxaparin 40 MG/0.4 ML Syringe SUBCUT SCH (11:31)
[2021-09-12] MEDS: Pantoprazole 40 MG Tab.CR PO SCH (17:15)
[2021-09-12] MEDS: Vitamin B Complex Tab PO SCH (17:15)
[2021-09-13] MEDS: Multivitamins with Iron/Calcium/Folic Acid/Minerals Tab PO SCH (08:42)
[2021-09-13] MEDS: Cholecalciferol (Vitamin D3) 10 MCG Tab PO SCH (08:42)
[2021-09-13] MEDS: Ferrous Sulfate 325 MG Tab PO SCH (08:42)
[2021-09-13] MEDS: Calcium Carbonate/Vitamin D3 1250 MG-5 MCG Tab PO SCH (08:42)
[2021-09-13] MEDS: Acetaminophen 325 MG Tab PO SCH ×4 (08:42→21:06)
[2021-09-13] MEDS: Enoxaparin 40 MG/0.4 ML Syringe SUBCUT SCH (12:48)
[2021-09-13] MEDS: Pantoprazole 40 MG Tab.CR PO SCH (17:36)
[2021-09-13] MEDS: Vitamin B Complex Tab PO SCH (17:36)
[2021-09-14] MEDS: Ferrous Sulfate 325 MG Tab PO SCH (10:00)
[2021-09-14] MEDS: Multivitamins with Iron/Calcium/Folic Acid/Minerals Tab PO SCH (10:00)
[2021-09-14] MEDS: Calcium Carbonate/Vitamin D3 1250 MG-5 MCG Tab PO SCH (10:00)
[2021-09-14] MEDS: Acetaminophen 325 MG Tab PO SCH ×4 (10:01→19:59)
[2021-09-14] MEDS: Cholecalciferol (Vitamin D3) 10 MCG Tab PO SCH (10:01)
[2021-09-14] MEDS: Enoxaparin 40 MG/0.4 ML Syringe SUBCUT SCH (12:34)
[2021-09-14] MEDS: Vitamin B Complex Tab PO SCH (17:56)
[2021-09-14] MEDS: Pantoprazole 40 MG Tab.CR PO SCH (17:56)
[2021-09-15] MEDS: Cholecalciferol (Vitamin D3) 10 MCG Tab PO SCH (07:56)
[2021-09-15] MEDS: Multivitamins with Iron/Calcium/Folic Acid/Minerals Tab PO SCH (07:56)
[2021-09-15] MEDS: Ferrous Sulfate 325 MG Tab PO SCH (07:56)
[2021-09-15] MEDS: Calcium Carbonate/Vitamin D3 1250 MG-5 MCG Tab PO SCH (07:56)
[2021-09-15] MEDS: Acetaminophen 325 MG Tab PO SCH ×4 (07:57→19:25)
[2021-09-15] MEDS: Enoxaparin 40 MG/0.4 ML Syringe SUBCUT SCH (11:11)
--- NOTE | 2021-09-15 14:35 | CR ---
[id number] RAD/RAD Pelvis 1V W 2V Right Hip Exam: RAD Pelvis 1V W 2V Right Hip Clinical Data: FOLLOW-UP SURGERY COMPARISON: CORRELATION IS MADE WITH AUGUST 05, 2021 FINDINGS: Internal fixation of the right hip fracture is seen There is a residual offset of the intratrochanteric fracture fragments IMPRESSION: NEW BASELINE POSTOPERATIVE EXAM OF RIGHT HIP Fredis Noriega MD 09/15/21 [id number] Thank you for allowing us to participate in the care of your patient.
[2021-09-15] MEDS: Pantoprazole 40 MG Tab.CR PO SCH (17:18)
[2021-09-15] MEDS: Vitamin B Complex Tab PO SCH (18:06)
[2021-09-16] MEDS: Calcium Carbonate/Vitamin D3 1250 MG-5 MCG Tab PO SCH (07:49)
[2021-09-16] MEDS: Cholecalciferol (Vitamin D3) 10 MCG Tab PO SCH (07:49)
[2021-09-16] MEDS: Ferrous Sulfate 325 MG Tab PO SCH (07:49)
[2021-09-16] MEDS: Acetaminophen 325 MG Tab PO SCH ×4 (07:50→19:59)
[2021-09-16] MEDS: Multivitamins with Iron/Calcium/Folic Acid/Minerals Tab PO SCH (07:50)
[2021-09-16] MEDS: Enoxaparin 40 MG/0.4 ML Syringe SUBCUT SCH (11:51)
[2021-09-16] MEDS: Pantoprazole 40 MG Tab.CR PO SCH (16:12)
[2021-09-16] MEDS: Vitamin B Complex Tab PO SCH (17:51)
[2021-09-17] MEDS: Ferrous Sulfate 325 MG Tab PO SCH (09:57)
[2021-09-17] MEDS: Acetaminophen 325 MG Tab PO SCH ×4 (09:57→19:47)
[2021-09-17] MEDS: Calcium Carbonate/Vitamin D3 1250 MG-5 MCG Tab PO SCH (09:57)
[2021-09-17] MEDS: Multivitamins with Iron/Calcium/Folic Acid/Minerals Tab PO SCH (09:58)
[2021-09-17] MEDS: Cholecalciferol (Vitamin D3) 10 MCG Tab PO SCH (09:58)
[2021-09-17] MEDS: Enoxaparin 40 MG/0.4 ML Syringe SUBCUT SCH (12:56)
[2021-09-17] MEDS: Pantoprazole 40 MG Tab.CR PO SCH (16:59)
[2021-09-17] MEDS: Vitamin B Complex Tab PO SCH (16:59)
[2021-09-18] MEDS: Calcium Carbonate/Vitamin D3 1250 MG-5 MCG Tab PO SCH (10:24)
[2021-09-18] MEDS: Cholecalciferol (Vitamin D3) 10 MCG Tab PO SCH (10:24)
[2021-09-18] MEDS: Ferrous Sulfate 325 MG Tab PO SCH (10:24)
[2021-09-18] MEDS: Multivitamins with Iron/Calcium/Folic Acid/Minerals Tab PO SCH (10:25)
[2021-09-18] MEDS: Acetaminophen 325 MG Tab PO SCH ×4 (10:25→20:09)
[2021-09-18] MEDS: Enoxaparin 40 MG/0.4 ML Syringe SUBCUT SCH (14:50)
[2021-09-18] MEDS: Pantoprazole 40 MG Tab.CR PO SCH (17:21)
[2021-09-18] MEDS: Vitamin B Complex Tab PO SCH (18:44)
[2021-09-19] MEDS: Acetaminophen 325 MG Tab PO SCH ×4 (07:44→19:27)
[2021-09-19] MEDS: Multivitamins with Iron/Calcium/Folic Acid/Minerals Tab PO SCH (07:44)
[2021-09-19] MEDS: Calcium Carbonate/Vitamin D3 1250 MG-5 MCG Tab PO SCH (07:45)
[2021-09-19] MEDS: Ferrous Sulfate 325 MG Tab PO SCH (07:45)
[2021-09-19] MEDS: Cholecalciferol (Vitamin D3) 10 MCG Tab PO SCH (07:45)
[2021-09-19] MEDS: Enoxaparin 40 MG/0.4 ML Syringe SUBCUT SCH (11:38)
[2021-09-19] MEDS: Pantoprazole 40 MG Tab.CR PO SCH (16:55)
[2021-09-19] MEDS: Vitamin B Complex Tab PO SCH (17:23)
[2021-09-20] MEDS: Calcium Carbonate/Vitamin D3 1250 MG-5 MCG Tab PO SCH (07:44)
[2021-09-20] MEDS: Multivitamins with Iron/Calcium/Folic Acid/Minerals Tab PO SCH (07:44)
[2021-09-20] MEDS: Acetaminophen 325 MG Tab PO SCH ×3 (07:44→16:33)
[2021-09-20] MEDS: Cholecalciferol (Vitamin D3) 10 MCG Tab PO SCH (07:44)
[2021-09-20] MEDS: Ferrous Sulfate 325 MG Tab PO SCH (07:45)
[2021-09-20] MEDS: Enoxaparin 40 MG/0.4 ML Syringe SUBCUT SCH (12:54)
[2021-09-20] MEDS: Pantoprazole 40 MG Tab.CR PO SCH (16:33)
[2021-09-20] MEDS: Vitamin B Complex Tab PO SCH (17:17)
[2021-09-21 07:48] LABS: CHLORIDE,CL 107 mmol/L (98-107); SODIUM,NA 140 mmol/L (136-145)
--- NOTE | 2021-09-21 08:12 | PN ---
Progress Note for [facility] Date: 09/20/2021 Room #: VM.219 CHIEF COMPLAINT: 1. Right hip fracture. 2. Fall. SUBJECTIVE: Hospital day #32 on a 70-year-old male patient, who was admitted to the swing bed unit at [facility] on 08/18/2021 for rehab status post intramedullary nailing of a right subtrochanteric fracture. The patient had presented to the emergency room at [facility] on 08/18/2021 after he had a mechanical fall outside. The patient was transferred to [facility] for further evaluation and possible surgery. The patient did undergo surgery on 08/18/2021 for the right intramedullary nailing. The patient initially had some issues with ambulation but has progressed well. The patient's last x-ray was on 09/15/2021, which did not show any hardware complication. The patient continues to work with Physical Therapy. The patient did have low vitamin B and iron levels; therefore, he has received intramuscular and IV supplementation. The patient was admitted with COVID-19. He was started on Decadron, which he finished. The patient was not a candidate for the remdesivir as he did not require any oxygen. The patient's anemia was felt to be postoperative blood loss. The patient was seen by GI in the hospital, who recommend outpatient EGD and colonoscopy. The patient denies any headaches, dizziness, or lightheadedness. The patient states his pain is well controlled on Tylenol. He is ambulating as much as possible. No shortness of breath or cough. No chest pain or palpitations. The patient has chronic lower extremity edema. No fevers or chills. No abdominal complaints. The patient is having a daily bowel movement. No issues with urination. REVIEW OF SYSTEMS: See HPI. PHYSICAL EXAMINATION: Vital Signs: Weight 234.9 pounds, temperature 98.2, pulse 57, blood pressure 110/49, respiratory rate 12, and oxygen saturation 95% on room air. Skin: The right lateral leg incision is clean, dry, and intact. [place] were removed on 09/15/2021. No wound dehiscence. No wound drainage. No evidence of infection. He is feeling well. Respiratory: Lungs are decreased but clear throughout. Cardiovascular: Regular rate and rhythm, no murmur. Abdomen: Soft, nontender. Bowel sounds are normoactive x4. Extremities: +1 dependent pitting edema, bilateral lower extremities. Neurological: The patient is alert. The patient is oriented to person, place, and time. No new focal neurological deficits. LABORATORY STUDIES: None. ASSESSMENT: 1. Right hip fracture, as a result of a mechanical fall. 2. Status post intramedullary nailing of a right subtrochanteric fracture. 3. Right knee swelling. 4. Macrocytic anemia. 5. Tobacco use disorder. PLAN: A 70-year-old male patient was admitted to the swing bed unit on 08/18/2021 for rehab status post intramedullary nailing of a right subtrochanteric fracture. We will discontinue Lovenox today as the patient has been on the Lovenox for over 4 weeks. We will change Tylenol to p.r.n. instead of scheduled. We will discontinue oxycodone as the patient has not used this in 10 days. Recheck laboratory work tomorrow for anemia. Continue to work with Physical Therapy. I do anticipate a discharge home in the next 1 to 2 weeks. The patient is a full code 1. The patient does wish to transfer to a higher level of care should the need arise. This patient was seen and examined by me as an [facility] provider. TOTAL TIME FOR CARE AND COORDINATION: Greater than 30 minutes. TB: 09/20/2021 18:02:20 MODL: 09/20/2021 23:45:44 /[id number]
[2021-09-21] MEDS: Acetaminophen 325 MG Tab PO PRN (08:28)
[2021-09-21] MEDS: Calcium Carbonate/Vitamin D3 1250 MG-5 MCG Tab PO SCH (08:28)
[2021-09-21] MEDS: Cholecalciferol (Vitamin D3) 10 MCG Tab PO SCH (08:29)
[2021-09-21] MEDS: Multivitamins with Iron/Calcium/Folic Acid/Minerals Tab PO SCH (08:29)
[2021-09-21] MEDS: Ferrous Sulfate 325 MG Tab PO SCH (08:29)
[2021-09-21] MEDS: Pantoprazole 40 MG Tab.CR PO SCH (16:26)
[2021-09-21] MEDS: Vitamin B Complex Tab PO SCH (18:17)
[2021-09-22] MEDS ORDERED: Iron Sucrose Complex 100 MG/5 ML SDV IVPUSH ONE (09:04)
[2021-09-22] MEDS: Calcium Carbonate/Vitamin D3 1250 MG-5 MCG Tab PO SCH (09:46)
[2021-09-22] MEDS: Ferrous Sulfate 325 MG Tab PO SCH ×2 (09:46→17:49)
[2021-09-22] MEDS: Cholecalciferol (Vitamin D3) 10 MCG Tab PO SCH (09:46)
[2021-09-22] MEDS: Multivitamins with Iron/Calcium/Folic Acid/Minerals Tab PO SCH (09:47)
[2021-09-22] MEDS: Acetaminophen 325 MG Tab PO PRN (15:40)
[2021-09-22] MEDS: Pantoprazole 40 MG Tab.CR PO SCH (17:49)
[2021-09-22] MEDS: Vitamin B Complex Tab PO SCH (17:49)
[2021-09-23] MEDS: Calcium Carbonate/Vitamin D3 1250 MG-5 MCG Tab PO SCH (08:24)
[2021-09-23] MEDS: Cholecalciferol (Vitamin D3) 10 MCG Tab PO SCH (08:24)
[2021-09-23] MEDS: Ferrous Sulfate 325 MG Tab PO SCH ×2 (08:24→18:14)
[2021-09-23] MEDS: Multivitamins with Iron/Calcium/Folic Acid/Minerals Tab PO SCH (08:24)
[2021-09-23] MEDS: Vitamin B Complex Tab PO SCH (18:14)
[2021-09-23] MEDS: Pantoprazole 40 MG Tab.CR PO SCH (18:14)
[2021-09-24] MEDS: Multivitamins with Iron/Calcium/Folic Acid/Minerals Tab PO SCH (08:52)
[2021-09-24] MEDS: Cholecalciferol (Vitamin D3) 10 MCG Tab PO SCH (08:52)
[2021-09-24] MEDS: Ferrous Sulfate 325 MG Tab PO SCH ×2 (08:52→18:09)
[2021-09-24] MEDS: Calcium Carbonate/Vitamin D3 1250 MG-5 MCG Tab PO SCH (08:52)
[2021-09-24] MEDS: Vitamin B Complex Tab PO SCH (18:09)
[2021-09-24] MEDS: Pantoprazole 40 MG Tab.CR PO SCH (18:09)
[2021-09-25] MEDS: Ferrous Sulfate 325 MG Tab PO SCH ×2 (08:05→18:08)
[2021-09-25] MEDS: Calcium Carbonate/Vitamin D3 1250 MG-5 MCG Tab PO SCH (08:05)
[2021-09-25] MEDS: Cholecalciferol (Vitamin D3) 10 MCG Tab PO SCH (08:05)
[2021-09-25] MEDS: Multivitamins with Iron/Calcium/Folic Acid/Minerals Tab PO SCH (08:05)
[2021-09-25] MEDS: Acetaminophen 325 MG Tab PO PRN (12:30)
[2021-09-25] MEDS: Vitamin B Complex Tab PO SCH (18:07)
[2021-09-25] MEDS: Pantoprazole 40 MG Tab.CR PO SCH (18:07)
[2021-09-26] MEDS: Ferrous Sulfate 325 MG Tab PO SCH ×2 (07:41→17:26)
[2021-09-26] MEDS: Multivitamins with Iron/Calcium/Folic Acid/Minerals Tab PO SCH (07:41)
[2021-09-26] MEDS: Calcium Carbonate/Vitamin D3 1250 MG-5 MCG Tab PO SCH (07:41)
[2021-09-26] MEDS: Cholecalciferol (Vitamin D3) 10 MCG Tab PO SCH (07:41)
[2021-09-26] MEDS: Vitamin B Complex Tab PO SCH (17:26)
[2021-09-26] MEDS: Pantoprazole 40 MG Tab.CR PO SCH (17:26)
[2021-09-27] MEDS: Acetaminophen 325 MG Tab PO PRN ×2 (00:28→07:42)
[2021-09-27] MEDS: Multivitamins with Iron/Calcium/Folic Acid/Minerals Tab PO SCH (07:42)
[2021-09-27] MEDS: Cholecalciferol (Vitamin D3) 10 MCG Tab PO SCH (07:42)
[2021-09-27] MEDS: Ferrous Sulfate 325 MG Tab PO SCH ×2 (07:42→17:25)
[2021-09-27] MEDS: Calcium Carbonate/Vitamin D3 1250 MG-5 MCG Tab PO SCH (07:42)
[2021-09-27] MEDS: Pantoprazole 40 MG Tab.CR PO SCH (17:25)
[2021-09-27] MEDS: Vitamin B Complex Tab PO SCH (17:25)
--- NOTE | 2021-09-28 07:56 | PCM.DCSUM1 ---
Discharge Summary - Hospital Course HPI Initial Comments: Patient was admitted to the swing bed unit at [facility] s/p intramedullary nailing of right hip. Patient was helping another individual to cross a street when he himself fell and sustain the right hip fracture. No issues with surgery. Patient did well. Brief History: Patient did have some issues with low HgB after surgery; did get 2 units of blood. Intermittent monitoring of iron, patient was given IV venifer and one IM injection of B12. Ferrous sulfate was increased to BID. Otherwise, patient worked well with therapies and is ready for discharge today. Diagnosis: Stroke: No Modified Ced Scale: No Symptoms at All Modified Ced Scale Score: 0 - Discharge Data Discharge Date: 09/28/21 Discharge Disposition: Home, W Home Health Agency Condition: Fair - Referral to Home Health Date of Face to Face Encounter: 09/28/21 Reason for Homebound Status: Hip Fracture; s/p intramegullary nailing Primary Care Physician: Marcial Aguayo NP Skilled Need: RN support for medications and wound care; PT and OT for continue rehab - Patient Summary/Data Consults: Consultations 08/18/21 14:12 OT Evaluation and Treatment [CONS] Routine PT Evaluation and Treatment [CONS] Routine 08/18/21 17:05 Consult to Case Management/Paid Search Specialist [CONS] Routine 09/28/21 07:40 Consult to Home Health [CONS] Routine Labs Pending at D/C: None Hospital Course: Patient did well with therapy, however he is in need of additional therapy while at home for reacclamation. No issues with vital signs. No fevers. Patient was COVID positive on day of admission, and did well without any complications. No issues with bowel movements or urination. Patient has not required any narcotic pain medication for the past 3 weeks. He is using Tylenol only. [place] from right lateral thigh were removed on September 15, 2021. No infection or drainage since removal. Area is healing well. Patient is ready for discharge today with continued therapies. - Patient Instructions Diet: Regular Diet as Tolerated Activity: As Tolerated (per PT recommendations) Driving: Do Not Drive Showering/Bathing: May Shower Wound/Incision Care: Keep Operative Site/Wound Site Clean and Dry Notify Provider of: Fever, Increased Pain, Swelling and Redness, Drainage - Discharge Plan *PRESCRIPTION DRUG MONITORING PROGRAM REVIEWED*: Not Applicable *COPY OF PRESCRIPTION DRUG MONITORING REPORT IN PATIENT STACEY: Not Applicable Home Medications: Home Meds Acetaminophen [Tylenol] 650 tab PO QID 08/18/21 [History] Reece/Vit B12/Folic Acid/Vit B6 [Folic Acid-Vit B6-Vit B12 Tab] 1 tab PO DAILY@1800 08/18/21 [History] Calcium Carbonate [Tums] 500 mg PO Q4H PRN 08/18/21 [History] Ferrous Sulfate 325 mg PO DAILY 08/18/21 [History] Multivitamin 1 each PO DAILY 08/18/21 [History] Pantoprazole [ProTONIX] 1 tab PO DAILY@1700 08/18/21 [History] Cholecalciferol (Vitamin D3) [Vitamin D3] 20 mcg PO DAILY tablet 09/28/21 [Rx] Oxygen Therapy Mode: Room Air Patient Handouts: Intramedullary Nailing of Hip Fracture - Discharge Summary/Plan Comment DC Time >30 min.: Yes Total # of Minutes for Discharge Time: 43 Discharge Summary/Plan Comment: Face to Face Encounter Documentation Date of Encounter: 09/28/2021 Patient's Name: Emeka Varner Date of : 1950 I certify that Emeka Varner is under my care and that I, had a [id number] encounter that meets the physician [id number] requirements on 09/28/2021. This date must match the discharge summary progress note/clinic visit documentation supporting this information. The encounter with the patient was in whole or in part for the following medical condition, which is the primary reason for home health care: Right Hip Fra cture; ADL's; continue Rehab; s/p Intramedullary nailing right hip; weakness and deconditioning My clinical findings support the need for the services because of inability to safely get to outpatient facility for therapy due to fall risk, lack of muscle coordination and tone, shortness of breath with or without activity (walking greater than 20 feet; talking; completing ADL's) and profound weakness. Further, I certify that my clinical findings support that this patient is homebound (i.e. absences from home require considerable and taxing effort, or are for medical reasons, or for caodaism services, or infrequent, or of short duration when from other reasons) because patient is unable to safely ambulate distances less than 20 feet, patient experiences shortness of breath at rest and or with daily activity, patient requires frequent rest periods due to profound weakness and endurance, patient requires use of assistive device and/or use of quinones/furniture to ambulate (high fall risk) and patient requires assistance of another person to leave the home. Certification: For Home Health Services I certify that Emeka Varner meets the homebound requirements for the payer source and has a need for intermittent snf, physical therapy, and or speech or occupational therapy services in the home for the diagnosis currently outlined in the initial plan of care. These services will continue to be monitored by Dr. Vy Bullard. This physician will periodically review and update the plan of care as required. My signature indicates that this supplemental documentation has been incorporated in the patient's medical record. Marcial Aguayo NP 09/28/2021 - General Info Date of Service: 09/28/21 Functional Status: Reports: Pain Controlled, Tolerating Diet, Ambulating, Urinating. Denies: New Symptoms - Review of Systems General: Reports: No Symptoms Pulmonary: Reports: No Symptoms Cardiovascular: Reports: No Symptoms Gastrointestinal: Reports: No Symptoms Musculoskeletal: Reports: Other (Intermittent right hip pain from surgery; well tolerated) Skin: Reports: No Symptoms Neurological: Reports: No Symptoms - Patient Data Vitals - Most Recent: Last Vital Signs Temp 95.1 F L 09/28/21 06:00 Pulse 64 09/28/21 06:00 Resp 16 09/28/21 06:00 BP 120/58 L 09/28/21 06:00 Pulse Ox 95 09/28/21 06:00 Weight - Most Recent: 234 lb 6.4 oz I&O - Last 24 hours: Intake & Output 09/27/21 09/28/21 09/28/21 22:59 06:59 14:59 Intake Total 360 Balance 360 Med Orders - Current: Current Medications Acetaminophen (Acetaminophen 325 Mg Tab) 650 mg PO QID PRN PRN Reason: Pain Last Admin: 09/27/21 07:42 Dose: 650 mg Documented by: Bisacodyl (Bisacodyl 10 Mg Supp) 10 mg RECTAL BID PRN PRN Reason: Constipation Last Admin: 09/04/21 10:00 Dose: 10 mg Documented by: Calcium Carbonate (Calcium Carbonate/Vitamin D3 1250 Mg-5 Mcg Tab) 1 tab PO DAILY [place] Last Admin: 09/27/21 07:42 Dose: 1 tab Documented by: Cholecalciferol (Cholecalciferol (Vitamin D3) 10 Mcg Tab) 20 mcg PO DAILY [facility] Last Admin: 09/27/21 07:42 Dose: 20 mcg Documented by: Ferrous Sulfate (Ferrous Sulfate 325 Mg Tab) 325 mg PO BIDMEALS [facility] Last Admin: 09/27/21 17:25 Dose: 325 mg Documented by: Magnesium Hydroxide (Magnesium Hydroxide 400 Mg/5 Ml Susp 30 Ml Cup) 30 ml PO DAILY PRN PRN Reason: Constipation Last Admin: 09/03/21 14:05 Dose: 30 ml Documented by: Multivitamins/Minerals (Multivitamins With Iron/Calcium/Folic Acid/Minerals Tab) 1 tab PO DAILY [facility] Last Admin: 09/27/21 07:42 Dose: 1 tab Documented by: Pantoprazole Sodium (Pantoprazole 40 Mg Tab.Cr) 40 mg PO DAILY@1700 [facility] Last Admin: 09/27/21 17:25 Dose: 40 mg Documented by: Senna/Docusate Sodium (Docusate Sodium/Sennosides 50-8.6 Mg Tab) 2 tab PO BID [facility] Last Admin: 09/27/21 19:53 Dose: 2 tab Documented by: Sodium Chloride (Sodium Chloride 0.9% 10 Ml Syringe) 10 ml IV ASDIRECTED PRN PRN Reason: Keep Vein Open Last Admin: 09/07/21 07:38 Dose: 10 ml Documented by: Vitamin B Complex (Vitamin B Complex Tab) 1 each PO DAILY@1800 [facility] Last Admin: 09/27/21 17:25 Dose: 1 each Documented by: Discontinued Medications Acetaminophen (Acetaminophen 325 Mg Tab) 650 mg PO QID [facility] Last Admin: 09/20/21 16:33 Dose: 650 mg Documented by: Ascorbic Acid (Ascorbic Acid 500 Mg Tab) 1,000 mg PO DAILY [facility] Last Admin: 09/07/21 07:26 Dose: 1,000 mg Documented by: Bisacodyl (Bisacodyl 10 Mg Supp) 10 mg RECTAL DAILY PRN PRN Reason: Constipation Calcium Carbonate/Glycine (Calcium Carbonate 750 Mg Tab.Chew) 750 mg PO Q4H PRN PRN Reason: Heartburn Cefepime HCl (Cefepime 1 Gm Vial) 1 gm IVPUSH Q8H [facility] Stop: 08/29/21 18:01 Last Admin: 08/29/21 17:37 Dose: 1 gm Documented by: Cyanocobalamin (Cyanocobalamin (Vitamin B12) 1,000 Mcg/Ml Sdv) 1,000 mcg IM ONETIME ONE Stop: 08/30/21 07:24 Last Admin: 08/30/21 08:43 Dose: 1,000 mcg Documented by: Dexamethasone 2 mg/ (Dexamethasone 4 mg) 6 mg PO DAILY [facility] Stop: 08/28/21 17:46 Last Admin: 08/28/21 09:03 Dose: 6 mg Documented by: Enoxaparin Sodium (Enoxaparin 40 Mg/0.4 Ml Syringe) 40 mg SUBCUT Q24H [facility] Last Admin: 09/20/21 12:54 Dose: 40 mg Documented by: Enoxaparin Sodium (Enoxaparin 40 Mg/0.4 Ml Syringe) 40 mg SUBCUT DAILY [facility] Ferrous Sulfate (Ferrous Sulfate 325 Mg Tab) 325 mg PO DAILY [facility] Last Admin: 09/22/21 09:46 Dose: 325 mg Documented by: Vancomycin HCl 1.75 gm/ Premix 350 mls @ 175 mls/hr IV Q12H [facility] Last Admin: 08/25/21 07:21 Dose: Not Given Documented by: Vancomycin HCl 1 gm/ Sodium (Chloride) 250 mls @ 250 mls/hr IV Q1H [facility] Stop: 08/23/21 19:59 Last Admin: 08/23/21 19:53 Dose: 250 mls/hr Documented by: Vancomycin HCl 1.25 gm/ Sodium (Chloride) 250 mls @ 200 mls/hr IV Q12H [facility] Last Admin: 08/25/21 16:10 Dose: Not Given Documented by: Vancomycin HCl (Vancomycin 1.25 Gm/250 Ml) 250 mls @ 200 mls/hr IV Q12H [facility] Last Admin: 08/27/21 13:56 Dose: Not Given Documented by: Vancomycin HCl (Vancomycin 1.25 Gm/250 Ml) 250 mls @ 200 mls/hr IV Q12H [facility] Stop: 08/29/21 14:00 Last Admin: 08/29/21 11:35 Dose: 200 mls/hr Documented by: Iron Sucrose 200 mg/ Sodium (Chloride) 260 mls @ 200 mls/hr IV ONETIME ONE Stop: 08/29/21 17:02 Last Admin: 08/29/21 16:28 Dose: 200 mls/hr Documented by: Iron Sucrose 200 mg/ Sodium (Chloride) 260 mls @ 200 mls/hr IV ONETIME ONE Stop: 09/07/21 09:17 Last Admin: 09/07/21 07:27 Dose: 200 mls/hr Documented by: Non-Formulary Medication (Ascorbic Acid [Vitamin C]) 1,000 mg PO DAILY [facility] Non-Formulary Medication (Calcium Carbonate [Calcium]) 1,500 mg PO DAILY [facility] Non-Formulary Medication (Cholecalciferol (Vitamin D3) [Vitamin D3]) 800 unit PO DAILY [facility] Non-Formulary Medication (Multivitamin [Multivitamin]) 1 each PO DAILY [facility] Non-Formulary Medication (Zinc Sulfate [Zinc]) 50 mg PO DAILY [facility] Ondansetron HCl (Ondansetron 4 Mg Tab.Dis) 4 mg PO Q6H PRN PRN Reason: Nausea/Vomiting Last Admin: 09/05/21 11:47 Dose: 4 mg Documented by: Oxycodone HCl (Oxycodone 5 Mg Tab) 5 mg PO Q4H PRN PRN Reason: Pain (severe 7-10) Last Admin: 09/10/21 14:52 Dose: 5 mg Documented by: Polyethylene Glycol (Polyethylene Glycol 3350 Powder 17 Gm Packet) 17 gm PO DAILY PRN PRN Reason: Constipation Last Admin: 08/18/21 19:07 Dose: 17 gm Documented by: Sodium Biphosphate/Sodium Phosphate (Sodium Phosphate,Monobasic/Sodium Phosphate,Dibasic Enema 133 Ml Bottle) 133 ml RECTAL DAILY PRN PRN Reason: Constipation Zinc Sulfate (Zinc Sulfate 220 Mg Cap) 220 mg PO DAILY [facility] Last Admin: 09/07/21 07:26 Dose: 220 mg Documented by: - Exam Quality Assessment: Reports: Skin Breakdown (right lateral thigh from surgerical site) General: Reports: Alert, Oriented, Cooperative, No Acute Distress Lungs: Reports: Clear to Auscultation, Normal Respiratory Effort Cardiovascular: Reports: Regular Rate, Regular Rhythm, No Murmurs GI/Abdominal Exam: Normal Bowel Sounds, Soft, Non-Tender Wound/Incisions: Reports: Healing Well, No Drainage. Denies: Erythema Neurological: Reports: No New Focal Deficit *Q Meaningful Use (DIS) - VTE *Q VTE Mechanical Contraindications *Q: At Risk for Falls
[2021-09-28] MEDS: Ferrous Sulfate 325 MG Tab PO SCH (08:00)
[2021-09-28] MEDS: Cholecalciferol (Vitamin D3) 10 MCG Tab PO SCH (08:00)
[2021-09-28] MEDS: Calcium Carbonate/Vitamin D3 1250 MG-5 MCG Tab PO SCH (08:00)
[2021-09-28] MEDS: Multivitamins with Iron/Calcium/Folic Acid/Minerals Tab PO SCH (08:00)
[2021-09-28] MEDS: Acetaminophen 325 MG Tab PO PRN (08:00)
== END 2021-09-28 09:21 | disposition home health service (06) | DRG 559 ==
LOC: VM.MS 08-18 15:54
PROVIDERS: ADMIT Nurse Practitioner Family; ATTEND Nurse Practitioner Family
DX: S72.21XD Displaced subtrochanteric fracture of right femur, subsequent encounter for closed fracture with routine healing (principal); U07.1 COVID-19; D53.9 Nutritional anemia, unspecified; D50.0 Iron deficiency anemia secondary to blood loss (chronic); R22.41 Localized swelling, mass and lump, right lower limb; Z87.891 Personal history of nicotine dependence; Z79.899 Other long term (current) drug therapy
CPT/HCPCS: 36415; 71045; 80053; 80202; 81003; 82607; 82728; 82746; 83540; 83550; 83605; 84134; 84145; 85008; 85025; 85046; 86140; 97110-GP; 97116-GP; 97162-GP; 97165-GO; 97168-GO; 97530-GP; 97535-GO; A9270-GY; J0692; J1650; J1756; J3370; J3420; J7050; J8540

== ENCOUNTER 2021-10-30 09:13 | Day surgery (SDC) | payer MEDICARE, MEDICAID ==
[~2021-10-30 09:13] MED LIST: Lactated Ringers 1,000 ML IV SCH
[2021-10-30] MEDS ORDERED: Propofol 200 MG/20 ML SDV ONE ×2 (11:26→11:45)
[2021-10-30] MEDS ORDERED: fentaNYL 100 MCG/2 ML SDV ONE (11:26)
== END 2021-10-30 13:15 | disposition home or self-care (01) ==
LOC: VM.SDS 09:13
PROVIDERS: ATTEND Surgery
DX: D12.6 Benign neoplasm of colon, unspecified (principal); D50.0 Iron deficiency anemia secondary to blood loss (chronic); K57.30 Diverticulosis of large intestine without perforation or abscess without bleeding; E66.09 Other obesity due to excess calories; S72.21XA Displaced subtrochanteric fracture of right femur, initial encounter for closed fracture; M25.461 Effusion, right knee; F17.210 Nicotine dependence, cigarettes, uncomplicated; Z86.16 Personal history of COVID-19; Z68.35 Body mass index [BMI] 35.0-35.9, adult; Z79.899 Other long term (current) drug therapy
CPT/HCPCS: 00811; 88305; J2704; J3010; J7120